=== PATIENT | female | born 1995 | race Caucasian/White ===

== ENCOUNTER 2016-08-30 12:19 | Emergency (ER) | payer OTHER, MEDICAID ==
[~2016-08-30] VITALS: Ht 157.5 cm; Wt 55.3 kg
[~2016-08-30 12:19] MED LIST: PROTONIX 40MG T40 MG PO
[2016-08-30 13:35] LABS: URINE BILIRUBIN - DIPSTICK NEGATIVE (NEG); URINE BLOOD TRACE-LYSED (NEG)
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
[2016-08-30] MEDS ORDERED: LODINE400 M1 PO (14:12)
[2016-08-30 14:26] VITALS: BP 106/62
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
[2016-10-01] MEDS ORDERED: MEDROL 4MG. DOSE4 MG PO (13:29)
[2016-10-01] MEDS ORDERED: OMNICEF 300 MG300 MG PO (13:29)
== END 2016-08-30 14:26 ==
LOC: ER 12:19
PROVIDERS: Emergency Medicine
DX: S16.1XXA Strain of muscle, fascia and tendon at neck level, initial encounter (principal); S80.02XA Contusion of left knee, initial encounter; S39.012A Strain of muscle, fascia and tendon of lower back, initial encounter; V49.9XXA Car occupant (driver) (passenger) injured in unspecified traffic accident, initial encounter; Y92.414 Local residential or business street as the place of occurrence of the external cause